=== PATIENT | male | born 1960 | race Caucasian/White ===

== ENCOUNTER 2018-07-22 15:58 | Emergency (ER) | payer BC ==
[~2018-07-22] VITALS: Ht 172.7 cm; Wt 95.4 kg
[2018-07-22 19:25] LABS: HEMATOCRIT 41.7 % (38.0-50.0); HEMOGLOBIN 14.8 G/DL (12.5-16.6); MCH 31.4 PG (29.0-34.0); MCHC 35.5 G/DL (30.0-36.0); MCV 88.3 FL (86-99); PLATELET COUNT 184 K/uL (156-360); RBC DIS.WIDTH-CV 12.7 % (11.8-14.6); RBC DIS.WIDTH-SD 41.3 % (39-53); RED BLOOD COUNT 4.72 M/uL (4.00-5.50); WHITE BLOOD COUNT 15.8 K/uL (4.1-10.2)
[2018-07-22 19:40] LABS: ALBUMIN 4.2 g/dL (3.2-4.8); CHLORIDE 108 mEq/L (99-109); POTASSIUM 4.3 mEq/L (3.7-5.4); SODIUM 140 mEq/L (136-147)
[2018-07-22 19:42] LABS: GLUCOSE 124 mg/dL (70-99); TOTAL PROTEIN 7.2 g/dL (6.4-8.3)
[2018-07-22 19:44] LABS: TOTAL BILIRUBIN 0.8 mg/dL (0.0-1.0)
[2018-07-22 19:45] LABS: ALKALINE PHOSPHATASE 92 IU/L (3-129)
[2018-07-22 19:46] LABS: CREATININE 1.3 mg/dL (0.6-1.3); GFR ESTIMATE (CALCULATED) > 59 mL/min/ (58.99-99999)
[2018-07-22 19:47] LABS: AST (GOT) 19 IU/L (2-34); TROP-I INTERPRETATION NEGATIVE; TROPONIN-I < 0.01 ng/mL (0.0-0.30); UREA NITROGEN (BUN) 23 mg/dL (9-23)
[2018-07-22 19:49] LABS: ALT (GPT) 26 IU/L (3-49)
[2018-07-22 20:29] VITALS: BP 129/82
== END 2018-07-22 20:33 | disposition home or self-care (01) ==
LOC: EME 15:58
PROVIDERS: Emergency Medicine Emergency Medical Services
DX: R55 Syncope and collapse (principal); E86.0 Dehydration; S09.90XA Unspecified injury of head, initial encounter; T67.0XXA Heatstroke and sunstroke, initial encounter; T67.5XXA Heat exhaustion, unspecified, initial encounter; R41.82 Altered mental status, unspecified; S00.81XA Abrasion of other part of head, initial encounter; Y93.55 Activity, bike riding
CPT/HCPCS: 71046; 80053; 84484; 85027; 93005; 99281; 99285; J7030; J7120